=== PATIENT | male | born 1930 | race Hispanic/Latino ===

== ENCOUNTER 2019-09-03 16:47 | Inpatient (IN) | payer MEDICARE ==
[~2019-09-03] VITALS: Ht 157.5 cm; Wt 61.7 kg
[2019-09-03] MEDS ORDERED: FINASTERIDE5 MG PO (17:28)
[2019-09-03] MEDS ORDERED: LISINOPRIL2.5 MG PO (17:28)
[2019-09-03] MEDS ORDERED: LASIX20 MG PO (17:28)
[2019-09-03 17:50] LABS: BASOPHILS # (AUTO) 0.1 (0.0-0.1); BASOPHILS % 0.6 % (0.0-1.0); EOSINOPHILS # (AUTO) 0.1 (0.0-0.4); EOSINOPHILS % 1.5 % (0.0-6.0); HEMATOCRIT 34.7 % (38.2-49.6); HEMOGLOBIN 11.1 g/dL (14.0-18.0); LYMPHOCYTES # (AUTO) 1.6 (1.0-3.2); LYMPHOCYTES % 20.1 % (18.0-39.1); MEAN CORPUSCULAR HEMOGLOBIN 30.9 pg (28-32); MEAN CORPUSCULAR VOLUME 96.7 fL (81-99); MONOCYTES # (AUTO) 0.7 (0.2-0.8); MONOCYTES % 8.7 % (4.4-11.3); NEUTROPHILS # (AUTO) 5.4 (2.1-6.9); NEUTROPHILS % 68.8 % (38.7-80.0); PLATELET COUNT 362 x10e3/uL (140-360); RED BLOOD COUNT 3.59 x10e6/uL (4.3-5.7); RED CELL DISTRIBUTION WIDTH 15.1 % (11.7-14.4)
--- NOTE | 2019-09-03 18:07 | Diagnostic Imaging Report ---
EXAMINATION: CHEST SINGLE (PORTABLE) INDICATION: Short of breath COMPARISON: None FINDINGS: TUBES and LINES: None. LUNGS: Hazy opacification of the mid to lower lungs with obscured hemidiaphragms. Lung volumes within normal limits. No pneumothorax. PLEURA: No pleural effusion or pneumothorax. HEART AND MEDIASTINUM: Cardiac size is mildly enlarged. BONES AND SOFT TISSUES: No acute osseous lesion. Soft tissues are unremarkable. UPPER ABDOMEN: No free air under the diaphragm. IMPRESSION: Mild cardiomegaly, pulmonary edema, and small pleural effusions. Superimposed pneumonia is possible. Signed by: Rudi Morales DO on 09/03/2019 6:04 PM
[2019-09-03 18:09] LABS: ALBUMIN 3.1 g/dL (3.5-5.0); ALBUMIN/GLOBULIN RATIO 0.9 (0.8-2.0); ANION GAP 15.5 mmol/L (8-16); CALCIUM 9.1 mg/dL (8.4-10.2); CREATININE, SERUM 1.78 mg/dL (0.72-1.25); POTASSIUM 4.5 mmol/L (3.5-5.1)
[2019-09-03 18:15] LABS: CREATINE KINASE MB 7.8 ng/mL (0-5.0)
[2019-09-03] MEDS ORDERED: FUROSEMIDE INJ 10 MG/ML 4 ML VIAL IV ONE (19:00)
[2019-09-03] MEDS ORDERED: SODIUM CHLORIDE FLUSH 10 ML SYR INJ PRN (20:00)
--- OUTSIDE RECORDS SUMMARY | 2019-09-03 20:09 | XMS REPORT ---
Author Author [facility] Address Unknown Phone Unavailable Care Team Providers Care Electronic Controls Repairer Supervisor Name Role Phone PHUC DESAI Unavailable Unavailable Problems This patient has no known problems. Allergies, Adverse Reactions, Alerts This patient has no known allergies or adverse reactions. Medications This patient has no known medications. Results Test Description Test Time Test Comments Text Results Atomic Results Result Comments CHEST SINGLE (PORTABLE) 2019-09-03 18:03:00 [place] [address] Patient Name: ESTEFANÍA DAHL MR #: [id number] : 1930 Age/Sex: 88/M Req #: [id number] Adm Physician: Ordered by: PHUC DESAI DO Report #: [id number] Location: ER Room/Bed: Procedure: [id number] DX/CHEST SINGLE (PORTABLE) Exam Date: Exam Time: REPORT STATUS: Signed EXAMINATION: CHEST SINGLE (PORTABLE) INDICATION: Sh ort of breath COMPARISON: None FINDINGS: TUBES and LINES: None. LUNGS: Hazy opacification of the mid to lower lungs with obscured hemidiaphragms. Lung volumes within normal limits. No pneumothorax. PLEURA: No pleural effusion or pneumothorax. HEART AND MEDIASTINUM: Cardiac size is mildly enlarged. BONES AND SOFT TISSUES: No acute osseous lesion. Soft tissues are unremarkable. UPPER ABDOMEN: No free air under the diaphragm. IMPRESSION: Mild cardiomegaly, pulmonary edema, and small pleural effusions. Superimposed pneumonia is possible. Signed by: Rudi Morales DO on 09/03/2019 6:04 PM Dictated By: RUDI MORALES DO 03 Transcribed By: JOHN PAUL on 09/03/191803 COPY TO: PHUC DESAI DO
--- NOTE | 2019-09-03 22:10 | NUR ---
Received patient from the Emergency Room via stretcher. Patient is alert and oriented. He is hard of hearing. Observed to have weakness in both lower extremities. Assisted to bed. Redness to back, sacrum and both LE noted. Scabbed noted to left elbow and back. No complain of pain.
[2019-09-03 23:11] VITALS: BP 164/20
[2019-09-03 23:14] VITALS: BP 164/81
[2019-09-03 23:53] VITALS: BP 164/81
[2019-09-04] VITALS (8 sets, daily range): BP systolic 136–158; BP diastolic 76–95
[2019-09-04] MEDS ORDERED: CALCIUM 600 +1 EAC2 PO (05:46)
[2019-09-04] MEDS ORDERED: VITAMIN D3125 MCG/1 PO (05:49)
[2019-09-04 06:14] LABS: CREATINE KINASE MB 8.6 ng/mL (0-5.0)
--- NOTE | 2019-09-04 07:22 | NUR ---
PATIENT IN BED RESTING WITH HEAD OF BED ELEVATED, NO DISTRESS NOTED. O2 IN PLACE VIA N/C. BED IN LOWER POSITION, CALL LIGHT AT REACH.
[2019-09-04] MEDS: FUROSEMIDE INJ 10 MG/ML 4 ML VIAL IV SCH ×2 (09:25→18:06)
[2019-09-04] MEDS ORDERED: CEFAZOLIN SOD 1 GM VIAL IV SCH (10:45)
--- NOTE | 2019-09-04 11:00 | NUR ---
MD IN TO SEE PATIENT, NEW ORDERS RECEIVED.
[2019-09-04] MEDS ORDERED: SODIUM CHLORIDE 0.9% 250ML 250 ML ONE (11:43)
[2019-09-04] MEDS: CEFAZOLIN SOD 1 GM/NS 50ML 50 ML IV SCH ×2 (12:00→18:06)
[2019-09-04] MEDS: POTASSIUM CHLORIDE 10MEQ EA PO SCH (12:00)
--- NOTE | 2019-09-04 12:31 | Diagnostic Imaging Report ---
EXAMINATION: CT scan of the chest without contrast. TECHNIQUE: Helical CT images of the chest were performed from the lung apices to the level of the adrenal glands. No intravenous contrast was administered Coronal and sagittal reformatted images were obtained.Dose modulation, iterative reconstruction, and/or weight based adjustment of the mA/kV was utilized to reduce the radiation dose to as low as reasonably achievable. COMPARISON: None. CLINICAL HISTORY:Congestive heart failure, hypoxia DISCUSSION: ABSENCE OF INTRAVENOUS CONTRAST DECREASES SENSITIVITY FOR DETECTION OF FOCAL LESIONS AND VASCULAR PATHOLOGY. LINES/TUBES: None. LUNGS AND AIRWAYS: Bilateral compressive atelectasis involving the lower lobes, middle lobe, and lingula. Prominence of the pulmonary vasculature PLEURA: Moderate bilateral pleural effusions. HEART AND MEDIASTINUM: The thyroid gland is normal. Heart size is enlarged. Coronary artery calcifications. LYMPH NODES: There is no mediastinal, hilar or axillary lymphadenopathy. ABDOMEN: Limited contrast-enhanced views of the upper abdomen show no abnormality within the visualized liver, spleen, pancreas, or kidneys. The adrenal glands are normal. BONES AND SOFT TISSUES: No acute bony abnormalities. IMPRESSION: Cardiomegaly with pulmonary venous congestion Moderate effusions with compressive atelectasis Signed by: Dr. Demetrius Vargas M.D. on 09/04/2019 12:27 PM
--- NOTE | 2019-09-04 14:07 | History and Physical ---
CHIEF COMPLAINT: Hypoxic congestive heart failure and bilateral lower extremity cellulitis. HISTORY OF PRESENT ILLNESS: The patient is an 88-year-old male with recent diagnosis of congestive heart failure, ejection fraction per family approximately 40%. The patient was sent to the emergency room after evaluated from the primary care clinic. The patient here has pulmonary vascular congestion. The patient is also having increasing shortness of breath. He has bilateral lower extremity edema and also below the knee area redness consistent with infection, worse on the right than the left. Baseline, the patient is able to ambulate with a Merry walker. The patient also is urinary incontinent. He was told that he needs some sort of defibrillator, but because of his age, he is not a candidate. The patient is otherwise stable at baseline. His is taking care of the patient. Baseline chronic kidney disease as well. He had left hip replacement. PAST MEDICAL HISTORY: Congestive heart failure, systolic dysfunction. Chronic anemia due to chronic medical disease. Chronic kidney disease. Hypertension. Progressive weight loss, medical debility. Right hip replacement. Osteoarthritis. SOCIAL HISTORY: The patient lives at home with his spouse. He does not smoke or use alcohol. No regular drug use. ALLERGIES: NO KNOWN ALLERGIES. HOME MEDICATIONS: List is reviewed. REVIEW OF SYSTEMS: As mentioned above. PHYSICAL EXAMINATION: VITAL SIGNS: Temperature is 98, blood pressure is 156/92, pulse rate is 65, respirations 18. GENERAL: The patient is not in acute distress. He is awake. HEENT: Normocephalic and atraumatic. Pupils reactive. Anicteric. NECK: Supple grossly. PULMONARY: Diminished breath sounds bilaterally with rales at the bases. CARDIOVASCULAR: S1 and S2. Regular rate and rhythm. ABDOMEN: Cachexia. EXTREMITIES: Bilateral 1 to 2+ edema. Bilateral lower extremity cellulitis, redness below the knee area, worse on the right compared to the left. NEUROLOGIC: Generalized weakness without any gross focal deficit. LABORATORY DATA: Sodium is 141, potassium 4.5, chloride 109 bicarb 21, BUN 39, creatinine 1.3, glucose 119. WBC is 7.8, hemoglobin 11.1, hematocrit 34.7, and platelets are 362. IMPRESSION: 1. Acute on chronic systolic dysfunction, congestive heart failure exacerbation. 2. Bilateral lower extremity cellulitis, worse on the right compared to the left. 3. Medical debility, progressive decline. 4. Acute hypoxia secondary to above. 5. History of weakness and remote fall. PLAN: Continue with diuresis. CT of the chest. Antibiotics for the lower extremity. Repeat lab work. Correct electrolyte. Echocardiogram. Consultation with Dr. Handley. We will follow up on the patient workup. MD LUIS Davila/SIDNEY /[id number]
[2019-09-04 14:35] LABS: CREATINE KINASE MB 8.8 ng/mL (0-5.0)
--- NOTE | 2019-09-04 15:55 | NUR ---
PATIENT ASSISTED WITH URINAL, VOIDED 200 CC OF YELLOW URINE.
[2019-09-04] MEDS: FAMOTIDINE 20 MG TAB PO SCH (16:30)
--- NOTE | 2019-09-04 17:38 | NUR ---
Nutrition Screen Note RD Recommendation for Physician: - Continue cardiac diet as ordered Plan of Care: RD following, monitoring for tolerance and adequacy Nutrition reason for involvement: Diagnosis Primary Diagnose(s): 1. Acute on chronic systolic dysfunction, congestive heart failure exacerbation. 2. Bilateral lower extremity cellulitis, worse on the right compared to the left. PMH: Congestive heart failure, systolic dysfunction. Chronic anemia, chronic kidney disease, HTN, medical debility, OA. Ht: 62in Wt: 136lb BMI: 24.9kg/m2 IBW: 118lb +/- 10% RD Assessment: (09/04) Chart reviewed. Labs and meds reviewed. 88yo M, who was admitted for CHF. Pt lived with spouse at home. on bedside to provide hx. Per , pt was eating well JIG HAND. has helped pt to regain significant amount of weight within the last year (from 86lbs to current 136lb). Pt was not taking any protein supplements at home. No complain of nausea or vomiting. Pt denied any chewing or swallowing difficulty. Family has no concern at this time. Will continue to monitor and follow. Current Diet: Cardiac diet Malnutrition Evaluation (09/04/2019) The patient does not meet criteria for a specified degree of malnutrition at this time. Will re-evaluate at follow-up as appropriate. Diet Education Needs Assessment: Diet education not indicated. Nutrition Care Level: low Signed: Gertrudis Pradhan, , RD, LD
[2019-09-04] MEDS: ENOXAPARIN SOD INJ 40 MG/0.4 ML SYR SC SCH (18:06)
[2019-09-04] MEDS: ATORVASTATIN 20 MG TAB PO SCH (19:57)
[2019-09-04] MEDS: CARVEDILOL 3.125 MG TAB PO SCH (19:57)
--- NOTE | 2019-09-04 21:09 | Consultation ---
DATE OF CONSULTATION: 09/04/2019 Cardiology Consultation REASON FOR CONSULTATION: Heart failure. HISTORY OF PRESENT ILLNESS: An 88-year-old man with dementia, CKD, anemia of chronic disease, history of right hip replacement and osteoarthritis, chronic systolic heart failure, presents with worsening leg edema, erythema to both lower extremities and worsening shortness of breath and debility. He denies any chest discomfort. The patient and at bedside provided information. Both seem to be having issues with memory. We will attempt additional confirmation once other family becomes available. Since admission, Sahil has been initiated on diuretics with improvement in leg edema and breathing. He denies any syncope or lightheadedness. He denies any palpitations. He does not have any recollection of previous coronary evaluation or cardiac workup that he patient remember. PAST MEDICAL HISTORY: 1. Per EMR, chronic heart failure, systolic, however, unclear if this is known from before. 2. Chronic anemia due to chronic illness. 3. CKD. 4. Hypertension. 5. Debility. 6. Right hip replacement. 7. Osteoarthritis. SOCIAL HISTORY: Lives at home with spouse. No smoking, alcohol, or drugs. ALLERGIES: NO KNOWN DRUG ALLERGIES. FAMILY HISTORY: Noncontributory. CURRENT MEDICATIONS: Reviewed. 1. Lovenox 40 mg subcu daily. 2. Furosemide 40 mg b.i.d. 3. Potassium 20 mEq daily. REVIEW OF SYSTEMS: A 12-system review negative except for as noted above. PHYSICAL EXAMINATION: VITAL SIGNS: Temperature 96.4, heart rate 57, respiratory rate 20, blood pressure 140/78, O2 saturation 97% on nasal cannula. BMI 24.8 with a weight of 136 pounds. GENERAL: In no acute distress, alert. NECK: JVD to lower third of neck at 45-degree head of bed elevation. No carotid bruits. CHEST: Chest with scattered rales in the bases and decreased breath sounds. CARDIOVASCULAR: Regular rate and rhythm, normal S1 and S2, no S3, no S4. Systolic ejection murmur best heard in the cardiac apex 2/6. ABDOMEN: Soft. Bowel sounds positive. EXTREMITIES: 2+ edema. Erythema to lower third of legs bilaterally. MUSCULOSKELETAL: Generalized weakness. STUDIES: Reviewed. EKG sinus rhythm with left bundle branch block. Echocardiogram with normal left ventricular chamber size, left ventricular severe impairment in systolic function with LVEF 25% to 30%, vsnh-ky-hyosaytq mitral regurgitation, trace tricuspid regurgitation, left atrial enlargement, aortic valve is not well visualized, however, velocities less than 1.7. Peak aortic velocity. Studies reviewed. Sodium 141, potassium 4.5, chloride 109, bicarbonate 21, BUN 39, creatinine 1.78, glucose 119. White blood cell 7.8, hemoglobin 11.1, platelets 362. AST 28, ALT 24, alkaline phosphatase 126, total bilirubin 0.2. Troponin I negative x3. BNP 1830. CT chest, cardiomegaly with venous congestion and moderate effusions with compressive atelectasis. ASSESSMENT AND PLAN: An 88-year-old man, presents from clinic with decreased O2 saturation, worsening shortness of breath and worsening edema with erythema to lower extremities. 1. Ssvgs-hd-odgvtma severe systolic heart failure with LVEF of 25% to 30%. 2. Ffjg-tw-zrcgpxqw mitral regurgitation. 3. Chronic kidney disease. 4. Hypertension. 5. Debility. 6. Weight loss of unclear etiology. 7. Anemia of chronic disease. 8. Status post right hip replacement. 9. Leg cellulitis, bilateral. 10. Fall risk and debility. 11. Left bundle branch block. RECOMMENDATIONS: 1. Continue IV diuretics and replete electrolytes as needed. 2. Monitor renal function. 3. Carvedilol at low dose with holding parameters, particularly for bradycardia less than 55 or systolic blood pressure less than 110. 4. If renal function remains stable, the patient tolerating low-dose beta-vick, we will add Entresto. 5. We will discuss further with the patient's family members. If no previous coronary evaluation recently done, we will advise on proceeding with these throughout this hospital stay. 6. If confirmed known heart failure and it has been on optimal medical therapy at home, we will revisit indications for defibrillator/BOTTOM BRUSHER therapy in consideration with the patient's wishes and overall other comorbidities. 7. Consider PT/OT assessment. 8. Antibiotics per primary service. I thank, Dr. Odonnell, for the opportunity to participate in the care of Mr. Ch. Please call with any questions. Srikanth Ames MD AFV/MODL /[id number]
--- NOTE | 2019-09-04 23:41 | NUR ---
PATIENT IS CONFUSED AND TRIED TO GET OUT OF THE BED SEVERAL TIMES. DR. ANDRADE NOTIFIED. HOSPITAL INSURANCE REPRESENTATIVE MADE AWARE.
[2019-09-05] VITALS (7 sets, daily range): BP systolic 115–150; BP diastolic 66–84
[2019-09-05] MEDS ORDERED: CEFAZOLIN SOD 1 GM/NS 50ML 50 ML IV SCH ×2 (02:00)
[2019-09-05 06:54] LABS: CHOL/HDL RATIO 2.6 (3.9-4.7)
--- NOTE | 2019-09-05 07:15 | NUR ---
PATIENT NOTED WITH CONFUSION, REMOVING TELEMETRY LEAD, REDIRECTED. NEW LEADS APPLIED, 1:1 SITTER AT BED SIDE. BED IN LOWER POSITION, CALL LIGHT AT REACH.
[2019-09-05] MEDS: FAMOTIDINE 20 MG TAB PO SCH ×2 (08:00→16:40)
[2019-09-05] MEDS: CARVEDILOL 3.125 MG TAB PO SCH ×2 (09:04→21:00)
[2019-09-05] MEDS: POTASSIUM CHLORIDE 10MEQ EA PO SCH (09:04)
[2019-09-05] MEDS: FUROSEMIDE INJ 10 MG/ML 4 ML VIAL IV SCH (09:04)
[2019-09-05] MEDS: ASPIRIN 81 MG CHEW TAB PO SCH (09:04)
--- NOTE | 2019-09-05 09:36 | NUR ---
Met w/ Dr. Odonnell and discussed pt status. He will evaluate and assess pt to determine if pt meets inpatient
--- NOTE | 2019-09-05 12:10 | NUR ---
PATIENT SITTING AT BED SIDE EATING LUNCH, NO DIFFICULTY SWALLOWING OBSERVED. BED IN LOWER POSITION, CALL LIGHT AT REACH. 1:1 SITTER AT BED SIDE.
[2019-09-05] MEDS: CEFAZOLIN SOD 1 GM/NS 50ML 50 ML IV SCH ×2 (12:40→20:18)
--- NOTE | 2019-09-05 16:16 | NUR ---
PATIENT ASSISTED WITH URINAL, VOIDED CLEAR YELLOW URINR. IN BED WITH CALL LIGHT AT REACH.
--- NOTE | 2019-09-05 17:04 | Progress Note ---
DATE: Cardiology Progress Note SUBJECTIVE: Confused. Denies any current complaints. OBJECTIVE: VITAL SIGNS: Temperature 95.4, heart rate 61, blood pressure 115/66, respiratory rate 18, O2 saturation 94%, BMI 24.8. GENERAL: Confused, seems comfortable. Dry mucosa. NECK: JVD. Distended to lower third of neck at 30 degree head of bed elevation. CHEST: With decreased breath sounds in bilateral bases and scattered rales. CARDIOVASCULAR: Regular rate and rhythm, normal S1 and S2. Systolic ejection murmur. No S3, no S4. ABDOMEN: Soft. Bowel sounds positive. EXTREMITIES: 1+ edema to both lower extremities. Erythema to lower extremities continues to improve. CARDIOVASCULAR MEDICATIONS: Reviewed. Lovenox 40 mg subcu daily, atorvastatin 20 mg at bedtime, carvedilol 3.125 mg q.12 hours with holding parameters. Heart rate less than 55 and systolic blood pressure less than 110, aspirin 81 mg daily, furosemide 40 mg IV b.i.d. LABORATORY STUDIES: Sodium 141, potassium 4.5, chloride 109, bicarbonate 21, BUN 39, creatinine 1.78, glucose 119. White blood cell 7.8, hemoglobin 11.1, platelets 362. AST 28, ALT 24, total bilirubin 0.2, alkaline phosphatase 126. ASSESSMENT: 1. An 88-year-old man presents with acute on chronic severe systolic heart failure with left ventricular ejection fraction of 25% to 30%. 2. Mild to moderate mitral regurgitation. 3. Left bundle branch block. 4. Chronic kidney disease. 5. Hypertension. 6. Debility. 7. Weight loss of unclear etiology. 8. Leg cellulitis, bilaterally. 9. Fall risk. 10. Dementia. 11. Anemia. RECOMMENDATIONS: 1. At this point in time attempting to obtain further information regarding previous known coronary workup/systolic heart failure workup. The patient as well as seem to have memory issues limiting information gathering. Today has several visitors in the room, however all friends without specific past medical history information to provide, attempting to obtain further information from other family members as they become available. Discussed at length with nursing staff. For now, continue to treat medically optimizing his current condition. Antibiotics per primary service. 2. Adding Entresto with holding parameters, systolic blood pressure less than 110 and monitor potassium and renal function. 3. Decrease Lasix to once daily IV 40 mg. 4. Continue rest of cardiovascular medications. 5. If no additional information obtained, the patient plans for discharge. Can then advice on close outpatient followup to attempt to further clarify whether additional coronary assessment is indicated at this point of time and allow for further workup of weight loss as well as debility optimization. MD SALLY Hoyos/MODL /[id number]
[2019-09-05] MEDS: ENOXAPARIN SOD INJ 40 MG/0.4 ML SYR SC SCH (17:09)
[2019-09-05] MEDS: ATORVASTATIN 20 MG TAB PO SCH (21:00)
[2019-09-05] MEDS: VALSARTAN/SACUBITRIL 24MG/26MG 1 EA TAB PO SCH (21:00)
[2019-09-06] VITALS (7 sets, daily range): BP systolic 129–137; BP diastolic 15–79
[2019-09-06] MEDS: CEFAZOLIN SOD 1 GM/NS 50ML 50 ML IV SCH ×3 (04:19→20:23)
[2019-09-06 06:43] LABS: BASOPHILS % 0.5 % (0.0-1.0); EOSINOPHILS # (AUTO) 0.2 (0.0-0.4); EOSINOPHILS % 1.9 % (0.0-6.0); HEMATOCRIT 37.7 % (38.2-49.6); HEMOGLOBIN 12.2 g/dL (14.0-18.0); LYMPHOCYTES # (AUTO) 2.1 (1.0-3.2); LYMPHOCYTES % 25.8 % (18.0-39.1); MEAN CORPUSCULAR HEMOGLOBIN 30.3 pg (28-32); MEAN CORPUSCULAR HGB CONC 32.4 g/dL (31-35); MEAN CORPUSCULAR VOLUME 93.8 fL (81-99); MONOCYTES # (AUTO) 0.7 (0.2-0.8); MONOCYTES % 8.9 % (4.4-11.3); NEUTROPHILS # (AUTO) 5.1 (2.1-6.9); NEUTROPHILS % 62.5 % (38.7-80.0); PLATELET COUNT 355 x10e3/uL (140-360); RED BLOOD COUNT 4.02 x10e6/uL (4.3-5.7); RED CELL DISTRIBUTION WIDTH 14.6 % (11.7-14.4)
[2019-09-06 07:09] LABS: ANION GAP 14.4 mmol/L (8-16); CALCIUM 8.8 mg/dL (8.4-10.2); CREATININE, SERUM 1.65 mg/dL (0.72-1.25); POTASSIUM 4.4 mmol/L (3.5-5.1)
[2019-09-06] MEDS: FAMOTIDINE 20 MG TAB PO SCH ×2 (07:30→17:24)
[2019-09-06] MEDS: FUROSEMIDE INJ 10 MG/ML 4 ML VIAL IV SCH (08:54)
[2019-09-06] MEDS: VALSARTAN/SACUBITRIL 24MG/26MG 1 EA TAB PO SCH ×2 (09:00→21:00)
[2019-09-06] MEDS: ASPIRIN 81 MG CHEW TAB PO SCH (09:00)
[2019-09-06] MEDS: POTASSIUM CHLORIDE 10MEQ EA PO SCH (09:00)
[2019-09-06] MEDS: CARVEDILOL 3.125 MG TAB PO SCH ×2 (09:00→21:00)
--- NOTE | 2019-09-06 10:21 | NUR ---
SPOKE WITH DR ANDRADE HE WANTS HOSPICE CONSULT. SPOKE WITH SHE STATES SHE IS [facility] OUT OF IT TO PLEASE CONTACT FRIEND WHOM IS HELPING HER, SIGNED CHOICE FOR [facility] FILED IN CHART AND WILL CONTACT COMPANY.
--- NOTE | 2019-09-06 11:53 | Progress Note ---
DATE: 09/06/2019 Cardiology Progress Note SUBJECTIVE: Sleeping this morning, was awake most of the night per report. OBJECTIVE: VITAL SIGNS: Temperature 96.8, heart rate 58, blood pressure 137/50, respiratory rate 15, O2 saturation 96%, BMI 24.8. GENERAL: In no acute distress, alert. NECK: No JVD. CHEST: Clear to auscultation. CARDIOVASCULAR: Regular rate and rhythm, normal S1 and S2, systolic ejection murmur. No S3, no S4. ABDOMEN: Soft, nontender. Bowel sounds positive. EXTREMITIES: Trace edema. Erythema has improved. CARDIOVASCULAR MEDICATIONS: Carvedilol 3.125 mg every 12 hours with holding parameters if heart rate less than 55 and systolic blood pressure less than 110, furosemide 40 mg IV once daily, potassium chloride 20 mEq once daily, aspirin 81 mg daily, Entresto 24/26 mg one tablet every 12 hours, atorvastatin 20 mg at bedtime, Lovenox 40 mg subcu daily, and ceftriaxone antibiotics. LABORATORY STUDIES: Reviewed. Remarkable for potassium 4.4, bicarbonate 27, creatinine 1.65, BUN 44, glucose 95, white blood cells 8.2, hemoglobin 12.2, platelets 355. Normal transaminases. ASSESSMENT: An 88-year-old man presents with acute on chronic severe systolic heart failure. 1. Dementia. 2. Failure to thrive. 3. Lower extremity cellulitis. RECOMMENDATIONS: Discussed extensively with patient's and coordinating care with primary care given. Advanced comorbidities, decreased functional status and failure to thrive. At this point in time, continue to focus on conservative medical management and avoid additional interventions at this point. The patient reportedly had previous cardiac evaluation and has known systolic heart failure. Although data is currently not available regarding this workup, the patient does have an establish outpatient followup. He is advised to follow up within 1 week post discharge with Cardiology. Continue current cardiovascular medications. MD SALLY Hoyos/SIDNEY /[id number]
--- NOTE | 2019-09-06 13:32 | NUR ---
WOUND CARE CONSULT FOR 88 YO MALE HX OF CHF , HYPOXIA SHARYN 14 ON MODERATE PUP STATUS AND INTERVENTIONS AND ALTERNATING PRESSURE SURFACE LABS: WBC- 8.22 HGB- 12.2 GLUCOSE- 95 SKIN ASSESSMENT COMPLETE PATIENT PRESENTS WITH #1 HEALING STAGE 2 LENIER ULCERATION TO BACK RELATED TO TUBING MEASURES .5CMX 18CM X RED CLOSED SLOW BLANCHING #2 RIGHT GLUTEAL HEALING STAGE 2 ULCERATION 2CM X2CMX .1CM RECOMMENDATIONS : NURSING TO CONTINUE TO MAINTAIN MODERATE PUP STATUS AND INTERVENTIONS NURSING TO CONTINUE TO ASSIST PATIENT OUT OF BED FOR MEALS AND MUCH TOLERATED NURSING TO APPLY DAILY VENELEX OINTMENT TO BACK AND LEFT GLUTEAL HEALING STAGE 2 ULCERATIONS AND COVER LEFT GLUTEAL AREA WITH WITH ALLEVYN FOAM DRESSING Addendum: 09/06/19 at 1339 by Zane Suarez RN Amended: Links added.
--- NOTE | 2019-09-06 14:28 | NUR ---
Patient walked with PT, Back in bed, ate his lunch, denies any SOB or pain, at bed side. keep monitoring
[2019-09-06] MEDS: ENOXAPARIN SOD INJ 40 MG/0.4 ML SYR SC SCH (17:24)
--- NOTE | 2019-09-06 19:15 | NUR ---
Completed bedside rounds with morning nurse. Pt alert to name, lying in bed HOB 45 degrees. No s/s of pain at this time. Family at bedisde. Bed locked. Call light within reach. Will continue to monitor.
[2019-09-06] MEDS: ATORVASTATIN 20 MG TAB PO SCH (21:00)
[2019-09-07] VITALS: BP 135/70
[2019-09-07] MEDS: CEFAZOLIN SOD 1 GM/NS 50ML 50 ML IV SCH (03:59)
[2019-09-07 04:00] VITALS: BP 139/74
--- NOTE | 2019-09-07 06:45 | NUR ---
Report given to morning nurse. Pt lying in bed, no acute distress noted. Family at bedside.
[2019-09-07] MEDS: FAMOTIDINE 20 MG TAB PO SCH (07:30)
[2019-09-07 08:00] VITALS: BP 111/73
[2019-09-07 08:16] VITALS: BP 111/73
[2019-09-07] MEDS: ASPIRIN 81 MG CHEW TAB PO SCH (09:00)
[2019-09-07] MEDS: POTASSIUM CHLORIDE 10MEQ EA PO SCH (09:00)
[2019-09-07] MEDS: FUROSEMIDE INJ 10 MG/ML 4 ML VIAL IV SCH (09:00)
[2019-09-07] MEDS: CARVEDILOL 3.125 MG TAB PO SCH (09:00)
[2019-09-07] MEDS: VALSARTAN/SACUBITRIL 24MG/26MG 1 EA TAB PO SCH (09:00)
[2019-09-07] MEDS ORDERED: BALSAM PERU/CASTOR OIL 5 GM OINT...G. TP SCH (09:00)
--- NOTE | 2019-09-07 10:31 | NUR ---
DISCHARGE ORDERS TODAY FOR HOME WITH [facility]
--- NOTE | 2019-09-07 11:26 | NUR ---
CALLED AND SPOKE WITH VIJAY AT [facility] SHE STATES SHE WAS UNAWARE OF THE DISCHARGE, WILL SET UP TRANSPORT, [facility] AT 12 NOON, VIJAY WILL FAX OVER OOH DNR FOR TRANSPORT TO [facility], LET FAMILY KNOW. THEY ARE OKAY WITH DISCHARGE, EDUCATED ABOUT IMM
[2019-09-07 12:00] VITALS: BP 145/80
--- NOTE | 2019-09-07 14:16 | NUR ---
patient discharged to home under Hospice , IV canula removed, Tele box returned, family at bed side.patient not in any distress, Ambulance here to pick patient
--- NOTE | 2019-09-08 02:51 | Discharge Summary ---
FINAL DIAGNOSES: 1. Nvbcn-ey-qktutgh systolic dysfunction, congestive heart failure exacerbation. 2. Bilateral lower extremity cellulitis. 3. Medical debility. SUMMARY: An 88-year-old male with congestive heart failure with exacerbation. The patient had ejection fraction of approximately 30%. He is not a candidate for ICD placement from his previous audiology technician and medical team. The patient was not taking enough diuretic. Apparently, he was eating more Fritos because of the patient's craving and increase in the fluid retention. He also has swelling of the lower extremity and bilateral lower extremity infection. The patient was placed on IV furosemide and he is doing much better. He was on IV Ancef as well. The patient is doing much better now. He is stable and doing well, overall stable status. Because of his decline in medical debility and dementia along with other chronic medical problems, the patient is a good candidate for hospice care at home, helping his demented as well. His sister is here. The patient will go home with hospice today. DISCHARGE MEDICATIONS: Potassium 20 mEq daily, Pepcid 20 mg b.i.d., Lasix 40 mg daily, Keflex 500 mg t.i.d. for 7 days, oxygen support as needed which hospice can arrange, aspirin 81 mg daily, Coreg 3.125 twice a day, losartan 50 mg once a day. The patient is otherwise stable. He will go home today with hospice care and I will continue to monitor the patient as an outpatient. MD LUIS Davila/SIDNEY /[id number]
== END 2019-09-07 14:00 | disposition hospice, home (50) | DRG 291 ==
LOC: ER 16:47 → ERHOLD 20:00 → MED/SURG3 22:10 → OBSVTOIN 09-05 10:45
PROVIDERS: ADMIT Internal Medicine; ATTEND Internal Medicine
DX: I13.0 Hypertensive heart and chronic kidney disease with heart failure and stage 1 through stage 4 chronic kidney disease, or unspecified chronic kidney disease (principal); I50.43 Acute on chronic combined systolic (congestive) and diastolic (congestive) heart failure; L03.115 Cellulitis of right lower limb; L03.116 Cellulitis of left lower limb; I44.7 Left bundle-branch block, unspecified; R62.7 Adult failure to thrive; D63.8 Anemia in other chronic diseases classified elsewhere; Z96.641 Presence of right artificial hip joint; M16.11 Unilateral primary osteoarthritis, right hip; I34.0 Nonrheumatic mitral (valve) insufficiency; F03.90 Unspecified dementia, unspecified severity, without behavioral disturbance, psychotic disturbance, mood disturbance, and anxiety; R09.02 Hypoxemia; N18.3 Chronic kidney disease, stage 3 (moderate); Z68.24 Body mass index [BMI] 24.0-24.9, adult
CPT/HCPCS: 36415; 71045; 71250; 80048; 80053; 80061; 82550; 82553; 83036; 83880; 84443; 84484; 85025; 93005; 93306; 97139; 99284; G0378; J0690; J1650; J1940; J7050